=== PATIENT | male | born 1970 | race Caucasian/White ===

== ENCOUNTER 2022-02-05 13:45 | Emergency (ER) | payer OTHER ==
[~2022-02-05] VITALS: Ht 172.7 cm; Wt 100.0 kg
[2022-02-05 14:26] LABS: HEMATOCRIT 36.1 % (39.0-50.0); HEMOGLOBIN 11.5 g/dl (14.0-18.0); IMMATURE GRANULOCYTES 0.2 % (0.0-5.0); MEAN CELL VOLUME 88.5 fL CALC (80.0-100.0); MEAN CORPUSCULAR HGB 28.2 pG CALC (26.0-32.0); MEAN CORPUSCULAR HGB CONC 31.9 g/dL CAL (32.0-36.0); NEUT# 3.3 thou/uL (1.82-7.42); RED BLOOD COUNT 4.08 mill/uL (4.70-6.10)
[2022-02-05 14:36] LABS: ALBUMIN 4.5 g/dL (3.2-5.0); BILIRUBIN, TOTAL 0.8 mg/dL (0.0-1.4); CREATININE 1.6 mg/dL (0.7-1.3); TOTAL PROTEIN 7.9 g/dL (6.3-8.2)
[2022-02-05 16:37] LABS: URINE BILIRUBIN - DIPSTICK NEGATIVE (NEGATIVE); URINE BLOOD DIPSTICK SMALL (NEGATIVE); URINE COLOR YELLOW; URINE GLUCOSE - DIPSTICK NEGATIVE (NEGATIVE); URINE KETONE 15 mg/dL (NEGATIVE); URINE LEUK ESTERASE NEGATIVE (NEGATIVE); URINE PROTEIN - DIPSTICK NEGATIVE (NEG-TRACE); URINE SPECIFIC GRAVITY >=1.030; URINE UROBILINOGEN - DIPSTICK 0.2 E.U./dL (0.2)
[2022-02-05 16:38] LABS: URINE NITRITE - DIPSTICK NEGATIVE (Negative)
[2022-02-05 18:41] VITALS: BP 129/86
== END 2022-02-05 18:41 | disposition short-term general hospital (02) | DRG 392 ==
LOC: ED 13:45
PROVIDERS: Family Medicine
DX: R10.84 Generalized abdominal pain (principal); K50.90 Crohn's disease, unspecified, without complications; I10 Essential (primary) hypertension; E21.3 Hyperparathyroidism, unspecified; Z91.041 Radiographic dye allergy status
CPT/HCPCS: Q9967

== ENCOUNTER 2022-02-12 10:26 | Emergency (ER) | payer OTHER ==
[2022-02-12] VITALS (17 sets, daily range): BP systolic 107–164; BP diastolic 66–96
[~2022-02-12] VITALS: Ht 172.7 cm; Wt 91.0 kg
[2022-02-12 11:31] LABS: HEMATOCRIT 34.3 % (39.0-50.0); HEMOGLOBIN 11.2 g/dl (14.0-18.0); IMMATURE GRANULOCYTES 0.3 % (0.0-5.0); MEAN CELL VOLUME 87.9 fL CALC (80.0-100.0); MEAN CORPUSCULAR HGB 28.7 pG CALC (26.0-32.0); MEAN CORPUSCULAR HGB CONC 32.7 g/dL CAL (32.0-36.0); NEUT# 8.24 thou/uL (1.82-7.42); RED BLOOD COUNT 3.9 mill/uL (4.70-6.10); RED CELL DISTRI WIDTH 18.8 % (11.5-15.5)
[2022-02-12 11:43] LABS: ALBUMIN 4.1 g/dL (3.2-5.0); ALKALINE PHOSPHATASE 114 u/l (38-126); AMYLASE 171 u/l (30-110); ANION GAP 14 (6-22 (CALC)); BUN 12 mg/dL (9-20); BUN/CREATININE RATIO 15 (12-20 (CALC)); CARBON DIOXIDE 22 mmol/l (22-30); CHLORIDE 108 mmol/l (95-108); CREATININE 0.8 mg/dL (0.7-1.3); ETHYL ALCOHOL 0 mg/dl (0-30); GFR > 60 ML/MIN (>=60 (CALC)); GFR FOR AFR.AMER. > 60 ML/MIN (>=60 (CALC)); LIPASE 473 u/l (23-300); POTASSIUM 3.3 mmol/l (3.5-5.1); SGOT/AST 40 u/l (17-59); SODIUM 141 mmol/l (137-146); TOTAL PROTEIN 7.5 g/dL (6.3-8.2)
[2022-02-12 11:44] LABS: ACT PARTIAL THROMBO TIME 18.9 SECONDS (20.0-32.5); INTERNATIONAL NORMALIZED RATIO 0.9 RATIO (0.7-1.3); PROTHROMBIN TIME 9.9 SECONDS (9.0-12.5)
[2022-02-12 11:55] LABS: BILIRUBIN, TOTAL 0.4 mg/dL (0.0-1.4)
[2022-02-12] MEDS ORDERED: PHENERGAN25 MG PO (14:02)
[2022-02-12] MEDS ORDERED: PROTONIX40 M2 PO (14:03)
== END 2022-02-12 14:48 | disposition home or self-care (01) | DRG 392 ==
LOC: ED 10:26
DX: R11.2 Nausea with vomiting, unspecified (principal); R10.84 Generalized abdominal pain; D64.9 Anemia, unspecified; E87.6 Hypokalemia; R74.8 Abnormal levels of other serum enzymes

== ENCOUNTER 2022-04-08 13:27 | Emergency (ER) | payer OTHER ==
[~2022-04-08] VITALS: Ht 172.7 cm; Wt 91.0 kg
[~2022-04-08 13:27] MED LIST: PHENERGAN25 MG PO; PROTONIX40 M2 PO
[2022-04-08 14:23] LABS: HEMATOCRIT 32.7 % (39.0-50.0); IMMATURE GRANULOCYTES 0.2 % (0.0-5.0); MEAN CORPUSCULAR HGB 29.1 pG CALC (26.0-32.0); MEAN CORPUSCULAR HGB CONC 30.6 g/dL CAL (32.0-36.0); NEUT# 2.59 thou/uL (1.82-7.42); RED BLOOD COUNT 3.44 mill/uL (4.70-6.10); RED CELL DISTRI WIDTH 17.2 % (11.5-15.5)
[2022-04-08 14:24] LABS: MEAN CELL VOLUME 95.1 fL CALC (80.0-100.0)
[2022-04-08 14:36] LABS: ALBUMIN 3.6 g/dL (3.2-5.0); ALKALINE PHOSPHATASE 109 u/l (38-126); AMYLASE 111 u/l (30-110); ANION GAP 11 (6-22 (CALC)); BUN 12 mg/dL (9-20); BUN/CREATININE RATIO 14 (12-20 (CALC)); CARBON DIOXIDE 25 mmol/l (22-30); CHLORIDE 107 mmol/l (95-108); CREATININE 0.8 mg/dL (0.7-1.3); GFR FOR AFR.AMER. > 60 ML/MIN (>=60 (CALC)); GFR OTHER RACES > 60 ML/MIN (>=60 (CALC)); LIPASE 115 u/l (23-300); POTASSIUM 3.7 mmol/l (3.5-5.1); SGOT/AST 56 u/l (17-59); SODIUM 139 mmol/l (137-146); TOTAL PROTEIN 6.9 g/dL (6.3-8.2)
[2022-04-08 14:38] LABS: BILIRUBIN, TOTAL 0.7 mg/dL (0.0-1.4)
[2022-04-08 14:47] LABS: MYOGLOBIN 21 ng/mL (0 - 121)
[2022-04-08] MEDS ORDERED: ULTRAM50 M1 PO (15:20)
[2022-04-08] MEDS ORDERED: ONDANSETRON4 MG PO (15:21)
[2022-04-08 15:36] VITALS: BP 147/89
[2022-04-09] MEDS ORDERED: LOPRESSOR50 M1 PO (11:15)
[2022-04-09] MEDS ORDERED: MERCAPTOPUR50 MG PO (11:16)
[2022-04-09] MEDS ORDERED: OMEPRAZOLE20 MG PO (11:17)
[2022-04-09] MEDS ORDERED: DICYCLOMINE HCL20 MG PO (11:18)
[2022-04-09] MEDS ORDERED: NORVASC5 M1 (11:18)
[2022-04-09] MEDS ORDERED: ONDANSETRON HCL8 MG PO (11:19)
[2022-04-09] MEDS ORDERED: NORTRIPTYLIN25 MG PO (11:19)
[2022-04-09] MEDS ORDERED: HUMIRA PEN40 MG/0.8 SC (11:20)
[2022-04-09] MEDS ORDERED: CLONIDINE0.1 MG (11:21)
[2022-04-09] MEDS ORDERED: MAGNESIUM64 MG PO (11:22)
[2022-04-09] MEDS ORDERED: KLOR-CON M2020 MEQ (11:22)
[2022-04-09] MEDS ORDERED: VITAMIN B-12500 MCG (11:23)
[2022-04-09] MEDS ORDERED: APRISO0.375 GM PO (11:24)
[2022-04-09] MEDS ORDERED: FERROUS GLUC324 MG PO (11:25)
[2022-04-09] MEDS ORDERED: CALCIUM CARBO1250 MG PO (11:26)
[2022-04-09] MEDS ORDERED: COLESTID1 GM PO (11:27)
[2022-04-09] MEDS ORDERED: PREDNISONE20 MG (11:27)
[2022-04-09] MEDS ORDERED: VENTOLIN HFA (11:28)
== END 2022-04-08 15:50 | disposition home or self-care (01) | DRG 392 ==
LOC: ED 13:27
PROVIDERS: Emergency Medicine
DX: R10.33 Periumbilical pain (principal); K50.90 Crohn's disease, unspecified, without complications; R11.2 Nausea with vomiting, unspecified; I10 Essential (primary) hypertension; Z90.49 Acquired absence of other specified parts of digestive tract; Z20.822 Contact with and (suspected) exposure to COVID-19

== ENCOUNTER 2022-04-08 18:10 | Observation (INO) | payer OTHER ==
[~2022-04-08] VITALS: Ht 172.7 cm; Wt 127.0 kg
[~2022-04-08 18:10] MED LIST changes: +ONDANSETRON4 MG PO; +ULTRAM50 M1 PO
--- NOTE | 2022-04-08 18:12 | NUR ---
PT TO ROOM VIA W/C; DIAPHORETIC AND VOMITTING LOUDLY
--- NOTE | 2022-04-08 18:15 | NUR ---
NO BIOPATCH AVAILABLE, DR DENG. EMERGENT ACCESS DUE TO PATIENT CONDITION. DIAPHORETIC AND DRYHEAVING/VOMITING
[2022-04-08 19:11] LABS: HEMATOCRIT 35.3 % (39.0-50.0); HEMOGLOBIN 10.8 g/dl (14.0-18.0); IMMATURE GRANULOCYTES 0.2 % (0.0-5.0); MEAN CELL VOLUME 93.6 fL CALC (80.0-100.0); MEAN CORPUSCULAR HGB 28.6 pG CALC (26.0-32.0); MEAN CORPUSCULAR HGB CONC 30.6 g/dL CAL (32.0-36.0); NEUT# 2.89 thou/uL (1.82-7.42); RED BLOOD COUNT 3.77 mill/uL (4.70-6.10); RED CELL DISTRI WIDTH 17.2 % (11.5-15.5)
[2022-04-08 19:32] LABS: ALBUMIN 4.3 g/dL (3.2-5.0); ALKALINE PHOSPHATASE 138 u/l (38-126); AMYLASE 125 u/l (30-110); ANION GAP 18 (6-22 (CALC)); BILIRUBIN, TOTAL 0.7 mg/dL (0.0-1.4); BUN 11 mg/dL (9-20); BUN/CREATININE RATIO 11 (12-20 (CALC)); CARBON DIOXIDE 21 mmol/l (22-30); CHLORIDE 109 mmol/l (95-108); GFR FOR AFR.AMER. > 60 ML/MIN (>=60 (CALC)); GFR OTHER RACES > 60 ML/MIN (>=60 (CALC)); LIPASE 279 u/l (23-300); POTASSIUM 3.9 mmol/l (3.5-5.1); SGOT/AST 58 u/l (17-59); SODIUM 143 mmol/l (137-146); TOTAL PROTEIN 7.6 g/dL (6.3-8.2)
[2022-04-08 19:44] LABS: MYOGLOBIN 26 ng/mL (0 - 121)
--- NOTE | 2022-04-08 21:00 | NUR ---
[facility] ARRIVE TO UNIT VIA WHEELCHAIR ACCOMPANIED BY ER STAFF. PATIENT ORIENTED TO ROOM AND CALL LIGHT SYSTEM. ADMISSION ASSESMENT COMPLETED. PATIENT RACHEL A PORT TO RIGHT SIDE OF THE CHEST 20G NS AT 125ML/HR. PATIENT REPORTS PAIN TO ABDOMEN AND MEDICATED. CALL LIGHT IN REACH BED IN LOWEST POSITION. CONTINUE TO MONITOR.
[2022-04-08 21:03] VITALS: BP 163/94
--- NOTE | 2022-04-08 21:10 | NUR ---
PT XFER TO RM [id number]. BEDSIDE REPORT GIVEN TO RN. PT STABLE IN NO ACUTE DISTRESS.
--- NOTE | 2022-04-09 00:50 | NUR ---
PATIENT IN ROOM PACING. NOTED ANXIUOS. ANDRIA STATES IT HURT TO LAID DOWN. PATIENT MEDICATED PER MAR, CALL LIGHT IN REACH. CONTINUE TO MONITOR.
[2022-04-09 02:19] LABS: URINE BILIRUBIN - DIPSTICK NEGATIVE (NEGATIVE); URINE BLOOD DIPSTICK TRACE-INTACT (NEGATIVE); URINE CLARITY CLEAR; URINE COLOR YELLOW; URINE GLUCOSE - DIPSTICK NEGATIVE (NEGATIVE); URINE KETONE TRACE mg/dL (NEGATIVE); URINE LEUK ESTERASE NEGATIVE (Negative); URINE NITRITE - DIPSTICK NEGATIVE (Negative); URINE PH 5.5 (4.5-8.0); URINE PROTEIN - DIPSTICK NEGATIVE (NEG-TRACE); URINE SPECIFIC GRAVITY >=1.030; URINE UROBILINOGEN - DIPSTICK 0.2 E.U./dL (0.2)
[2022-04-09 03:50] VITALS: BP 148/86
[2022-04-09 04:00] VITALS: BP 148/86
--- NOTE | 2022-04-09 04:00 | NUR ---
PATIENT CONITINUES PACE IN ROOM AND HALLWAY PATIENT REPORT PAIN 9/10. HAND AND FEET NOTED SWOLLEN. PATEIENT REPORTS A LITTLE OF NAUSEA. PATIENT MEDICATED PER MAR. PATIENT SITING IN BED. CALL LING IN REACH AND BED IN LOWEST POSITION.
[2022-04-09 05:11] LABS: HEMATOCRIT 29.7 % (39.0-50.0); HEMOGLOBIN 9.3 g/dl (14.0-18.0); IMMATURE GRANULOCYTES 0.4 % (0.0-5.0); MEAN CELL VOLUME 93.7 fL CALC (80.0-100.0); MEAN CORPUSCULAR HGB 29.3 pG CALC (26.0-32.0); MEAN CORPUSCULAR HGB CONC 31.3 g/dL CAL (32.0-36.0); NEUT# 2.87 thou/uL (1.82-7.42); RED BLOOD COUNT 3.17 mill/uL (4.70-6.10); RED CELL DISTRI WIDTH 17.3 % (11.5-15.5)
[2022-04-09 05:37] LABS: ALBUMIN 3.7 g/dL (3.2-5.0); ALKALINE PHOSPHATASE 105 u/l (38-126); ANION GAP 10 (6-22 (CALC)); BUN 9 mg/dL (9-20); BUN/CREATININE RATIO 12 (12-20 (CALC)); C-REACTIVE PROTEIN < 0.5 mg/dL (0-0.9); CARBON DIOXIDE 25 mmol/l (22-30); CHLORIDE 108 mmol/l (95-108); CREATININE 0.8 mg/dL (0.7-1.3); GFR FOR AFR.AMER. > 60 ML/MIN (>=60 (CALC)); GFR OTHER RACES > 60 ML/MIN (>=60 (CALC)); POTASSIUM 3.5 mmol/l (3.5-5.1); SGOT/AST 48 u/l (17-59); SODIUM 139 mmol/l (137-146); TOTAL PROTEIN 6.6 g/dL (6.3-8.2)
--- NOTE | 2022-04-09 06:00 | NUR ---
PATIENT IN BED HOLDING HIS ABDOMEN AND TURN TO SIDE TO SIDE STATING THAT IT HURT SO BAD. DR NEWSOME NOTIFIED AND ORDER MORPHINE 2MG IV XI FOR PAIN.
[2022-04-09 06:25] VITALS: BP 143/92
--- NOTE | 2022-04-09 07:00 | NUR ---
SHIFT CHANGE REPORT, PT AWAKE AND ALERT THRASHING AND GROANING IN BED C/O ABD PAIN, NIGHT RN ADDRESSED ISSUE, IVF INFUSING, CALL WEINER IN REACH AND BED LOCKED IN LOWEST POSITION.
--- NOTE | 2022-04-09 08:32 | NUR ---
PT DISCOVERED WITH $160.00 IN COOK, REQUESTED TO SEND TO [facility], COUNTED AND VERIFIED WITH COURTNEY (WAITSTAFF CAPTAIN) AND PLACED IN SECURITY BAG TO BE SENT TO [facility]. PT NOW C/O NAUSEA AND DRY HEAVING, ITCHING TO LEFT UPPER TRUNK AND LEFT FOOT AND SCRATCHING AREAS, SWEATING AT THIS TIME AND PREPARED FOR SHOWER REQUESTED, WILL CONTINUE TO MONITOR AND ADDRESS NEEDS.
[2022-04-09] MEDS ORDERED: LOPRESSOR50 M1 PO (11:15)
[2022-04-09] MEDS ORDERED: MERCAPTOPUR50 MG PO (11:16)
[2022-04-09] MEDS ORDERED: OMEPRAZOLE20 MG PO (11:17)
[2022-04-09] MEDS ORDERED: DICYCLOMINE HCL20 MG PO (11:18)
[2022-04-09] MEDS ORDERED: NORVASC5 M1 (11:18)
[2022-04-09] MEDS ORDERED: NORTRIPTYLIN25 MG PO (11:19)
[2022-04-09] MEDS ORDERED: ONDANSETRON HCL8 MG PO (11:19)
[2022-04-09] MEDS ORDERED: HUMIRA PEN40 MG/0.8 SC (11:20)
[2022-04-09] MEDS ORDERED: CLONIDINE0.1 MG (11:21)
[2022-04-09] MEDS ORDERED: KLOR-CON M2020 MEQ (11:22)
[2022-04-09] MEDS ORDERED: MAGNESIUM64 MG PO (11:22)
[2022-04-09] MEDS ORDERED: VITAMIN B-12500 MCG (11:23)
[2022-04-09] MEDS ORDERED: APRISO0.375 GM PO (11:24)
[2022-04-09] MEDS ORDERED: FERROUS GLUC324 MG PO (11:25)
[2022-04-09] MEDS ORDERED: CALCIUM CARBO1250 MG PO (11:26)
[2022-04-09] MEDS ORDERED: COLESTID1 GM PO (11:27)
[2022-04-09] MEDS ORDERED: PREDNISONE20 MG (11:27)
[2022-04-09] MEDS ORDERED: VENTOLIN HFA (11:28)
--- NOTE | 2022-04-09 13:00 | NUR ---
PT REQUESTED SHOWER, AFTER APPROXIMATELY 30 MINS PT SITTING ON FLOOR IN SHOWER STATING HE FEELS COOL AND COMFORTABLE THERE WITH H2O RUNNING, ENCOURAGED TO GET UP AND GET BACK IN BED WHICH HE DID. HE HAS COMPLAINED OF FREQUENT PERIODIC DRY HEAVING/VOMITTING AND IS EXTREMELY LOUD DURING THESE EPISODES TO THE EFFECT OTHER PATIENTS ARE DISTURBED BY HIS LOUD NOISE. 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 THIS CONDITION HAS PERSISTED THROUGHOUT THE DAY EVEN AFTER MD HAS CHANGED HIS MEDICATIONS. WILL CONTINUE TO MONITOR.
--- NOTE | 2022-04-09 13:28 | NUR ---
DRY-HEAVING LOUDLY AT THIS TIME, REPORTS HE IS HOT AND WANTS TO GO IN THE SHOWER, IV LINE DISCONNECTED AND PT ALLOWED TO HAVE IF THAT MAKES HIM FEEL BETTER, WILL CONTINUE TO MONITOR.
[2022-04-09 14:30] VITALS: BP 154/97
--- NOTE | 2022-04-09 18:23 | NUR ---
C/O BEING HOT AND SWEATY, COOL WASHCLOTHS GIVEN AND FAN PLACED IN ROOM.
[2022-04-09 18:47] VITALS: BP 160/93
--- NOTE | 2022-04-09 19:15 | NUR ---
REPORT RECEIED FROM Emily OWEN RN
--- NOTE | 2022-04-09 20:00 | NUR ---
PATIENT OBSERVED WALKING OUT IN THE HALLWAYS, PROVIDED PATIENT WITH FACE MASK, PANFILO SADLER AT SIDE.
--- NOTE | 2022-04-09 22:13 | NUR ---
PATIENT IN THE SHOWER AT [facility] TIME
--- NOTE | 2022-04-09 22:25 | NUR ---
ORDER FOR ANGA REIVED FROM .
--- NOTE | 2022-04-10 03:30 | NUR ---
ORDER FOR 10MG IM XYPREXA RECEIVED FROM [facility]
[2022-04-10 04:04] VITALS: BP 162/79
--- NOTE | 2022-04-10 07:00 | NUR ---
SHIFT CHANGE REPORT, PT AMBULATING IN HALLWAYS AND C/O NAUSEA, REDIRECTED TO ROOM AFTER BEING ALLOWED TO AMBULATE FOR SOME MINUTES. STARTS DRY HEAVING LOUDLY, RESTLESS, THRASHING AROUND IN BED AND C/O ABD PAIN,MEDICATED AND EVENTUALLY RELAXED, SLEEPING.
[2022-04-10 07:10] VITALS: BP 179/101
--- NOTE | 2022-04-10 08:54 | NUR ---
AWAKE AND DISORIENTED AT THIS TIME, REMOVED CLOTHING AND AMBULATING ACCROSS HALLWAYS TO ANOTHER ROOM NAKED, MAKING MOANING/GROANING SOUNDS, ASSISTED BACK TO ROOM THEN TO BR HE STATED HE WANTS TO USE BR. SET UP FOR SHOWER HE REQUEST AT THIS TIME, FOLLOWS COMMANDS APPROPRIATELY BUT VERY IMPULSIVE AND MOVES RAPIDLY, AGRICULTURE MECHANIC INFORMED SITTER IN NEEDED FOR THIS PT NOW AND GAVE ORDER FOR FLOOR ITEM REPAIR MANAGER TO SIT UNTIL SUPSTITUTE COMES IN, WILL CONTINUE TO MONITOR.
--- NOTE | 2022-04-10 08:59 | NUR ---
PT IS ACTING AND APPEARS VERY UNSTABLE MENTALLY, MD WILL BE NOTIFIED OF CONDITION.
[2022-04-10 09:29] LABS: HEMOGLOBIN 10.1 g/dl (14.0-18.0); MEAN CELL VOLUME 92.2 fL CALC (80.0-100.0); MEAN CORPUSCULAR HGB 29.1 pG CALC (26.0-32.0); MEAN CORPUSCULAR HGB CONC 31.6 g/dL CAL (32.0-36.0); RED BLOOD COUNT 3.47 mill/uL (4.70-6.10); RED CELL DISTRI WIDTH 17.6 % (11.5-15.5)
[2022-04-10 10:14] LABS: ANION GAP 17 (6-22 (CALC)); BUN 10 mg/dL (9-20); BUN/CREATININE RATIO 13 (12-20 (CALC)); CARBON DIOXIDE 23 mmol/l (22-30); CHLORIDE 108 mmol/l (95-108); CREATININE 0.8 mg/dL (0.7-1.3); GFR FOR AFR.AMER. > 60 ML/MIN (>=60 (CALC)); GFR OTHER RACES > 60 ML/MIN (>=60 (CALC)); MAGNESIUM 1.5 mg/dL (1.6-2.3); POTASSIUM 3.9 mmol/l (3.5-5.1); SODIUM 144 mmol/l (137-146)
--- NOTE | 2022-04-10 12:00 | NUR ---
SITTER AT BEDSIDE, PT RESTING/SLEEPING IN BED. CONDITION IMPROVING AFTER ORDERED MEDS GIVEN.
[2022-04-10 14:48] VITALS: BP 151/87
[2022-04-10] MEDS ORDERED: PREDNISONE5 MG PO (15:41)
--- NOTE | 2022-04-10 16:00 | NUR ---
RESTLESNESS BEGINS AGAIN WITH LOUD DRY-HEAVINGS, MOANINGS AND ATTEMPTING TO GET OOB, REORIENTED AND REDIRECTED, THEN CALMED DOWN.
--- NOTE | 2022-04-10 18:55 | NUR ---
WALKING ROUNDS REPORT RECEIVED BY OUT-GOING SHIFT. PATIENT RESTING QUIETLY IN BED WITH EYES CLOSED RELAXED POSTURE. RESPIRATONS EVEN AND UNLABORED. EASILY AROUSABLE FOR ASSESSMENT. PLEASANT AND COOPERATIVE. PO FLUIDS TOLERATED WELL.
--- NOTE | 2022-04-11 00:02 | NUR ---
COMPLAIN OF ABDOMINAL PAIN AT LLQ RADIANT TRANSVERSE TO RLQ TO RUQ. MEDICATED FOR RELIEF OF PAIN AND DISCOMFORT.
--- NOTE | 2022-04-11 04:00 | NUR ---
RESTING QUIETLY IN BED WITH EYES CLOSED. RESPIRATIONS EVEN AND UNLABORED NO ACUTE DISTRESS NOTED.
[2022-04-11 05:00] VITALS: BP 155/79
[2022-04-11 05:00] LABS: HEMATOCRIT 28.4 % (39.0-50.0); HEMOGLOBIN 8.9 g/dl (14.0-18.0); IMMATURE GRANULOCYTES 0.2 % (0.0-5.0); MEAN CELL VOLUME 93.4 fL CALC (80.0-100.0); MEAN CORPUSCULAR HGB 29.3 pG CALC (26.0-32.0); MEAN CORPUSCULAR HGB CONC 31.3 g/dL CAL (32.0-36.0); NEUT# 4.11 thou/uL (1.82-7.42); RED BLOOD COUNT 3.04 mill/uL (4.70-6.10); RED CELL DISTRI WIDTH 17.9 % (11.5-15.5)
[2022-04-11 05:21] LABS: ALBUMIN 3.2 g/dL (3.2-5.0); ALKALINE PHOSPHATASE 55 u/l (38-126); BUN 11 mg/dL (9-20); BUN/CREATININE RATIO 13 (12-20 (CALC)); CHLORIDE 105 mmol/l (95-108); CREATININE 0.8 mg/dL (0.7-1.3); GFR FOR AFR.AMER. > 60 ML/MIN (>=60 (CALC)); GFR OTHER RACES > 60 ML/MIN (>=60 (CALC)); SGOT/AST 51 u/l (17-59); SODIUM 138 mmol/l (137-146); TOTAL PROTEIN 5.9 g/dL (6.3-8.2)
[2022-04-11 05:23] LABS: POTASSIUM 3.8 mmol/l (3.5-5.1)
[2022-04-11 05:34] LABS: ANION GAP 9 (6-22 (CALC)); BILIRUBIN, TOTAL 1.6 mg/dL (0.0-1.4); CARBON DIOXIDE 28 mmol/l (22-30); MAGNESIUM 1.9 mg/dL (1.6-2.3)
--- NOTE | 2022-04-11 06:57 | NUR ---
PT REPORT RECIEVED FROM FIGURE CLERK
[2022-04-11 07:14] VITALS: BP 155/98
[2022-04-11 08:00] VITALS: BP 177/95
--- NOTE | 2022-04-11 08:00 | NUR ---
PT RESTING IN FOWLERS POSITION. ASSESSMENT AND VS COMPLETED. PT SCREAMING IN PAIN . PT HAS NOT VOMITED. PT STATES TO BE NAUSEATED. PT MEDICATED. PT REMAINS CALM IN COLD SHOWER . PT STATES NO PAIN IN SHOWER. PT STATES PAIN ONCE LAYING IN BED. PT HEART RHYHTM NORMAL . RESPIRATIONS EVEN LABORED DUE TO PAIN. PT AGITATED. MEDICATED PER EMAR. BED ALARM ON . PORT NOTED TO RIGHT SUBCLAVIAN. ALL SAFTEY PRECAUTIONS IN PLACE.
--- NOTE | 2022-04-11 12:41 | NUR ---
PT REMAINS AGITATED. SCREAMING IN PAIN. NURSE TECH ADVISED IF PT DECIDES TO TAKE COLD SHOWER HE MAY TO FEEL BETTER. PT SAFETY PRECAUTIONS IN PLACE.
--- NOTE | 2022-04-11 15:51 | NUR ---
PT RESTING NO DISTRESS NOTED. ALL SAFETY PRECAUTIONS IN PLACE.
[2022-04-11 16:07] VITALS: BP 177/95
[2022-04-11 16:09] VITALS: BP 136/85
--- NOTE | 2022-04-11 16:41 | NUR ---
PT SCREAMING IN PAIN. CAP MAKER INFORMED. CAP MAKER ORDERED MEDICATION AND TELE FOR PT.
--- NOTE | 2022-04-11 18:50 | NUR ---
PATIENT AWAKE ALERT SITTING AT BEDSIDE MOANING LOUDLY, AUDIBLE DRY-HEAVING HEARD WITHOUT EMESIS. PAIN-CONTROLMETHODS OF REASSURANCE NOT AFFECTIVE AT THIS TIME. SKIN WARM AND MOIST. MED-PORT CENTRAL LINE DRSG CARE PROVIDED USING CVP DRSG CARE KIT. ZOFAN 4 MG GIVEN SLOW IV PUSH TO RELEIVE NAUSEA AND LORTAB GIVEN PO FOR PAIN RELIEF
--- NOTE | 2022-04-11 19:51 | NUR ---
DR NEWSOME UPDATED ON PATIENT CONDITION AND POOR PAIN MANAGEMENT AND BEHAVIORAL LOUD OUTBURTS NEW ORDER RECEIVED.
--- NOTE | 2022-04-11 20:47 | NUR ---
PATIENT RESTINGT QUIETLY IN BED WITH EYES CLOSED RESPIRATONS EVEN AND UNLABORED POSTURE RELAXED WILL CONTINUE TO MONITOR.
--- NOTE | 2022-04-11 21:58 | NUR ---
PATIENT RESTLESS MOVING IN BED MOANINING LOUDLY STATING HE'S IN BED RESPONDS TO GENTLE MESSAGE AND REASSURANCE WILL CONTINUE TO MONITOR.
--- NOTE | 2022-04-11 23:01 | NUR ---
RESTING QUIETLY IN BED WITH EYES CLOSED SUPINE RELAXED POSTURE RESPIRATIONS EVEN AND UNLABORED. QUIET ROOM EVIRONMENT MAINTAINED FOR REST.
[2022-04-12] VITALS (10 sets, daily range): BP systolic 112–185; BP diastolic 66–109
--- NOTE | 2022-04-12 01:28 | NUR ---
PATIENT MOANING LOUDLY C/O ABD PAIN AND CHEST PRESSURE EKG ORDERED WILL MONITOR CLOSELY
--- NOTE | 2022-04-12 01:32 | NUR ---
12 LEAD EKG WAS COMPLETED ON PT, SHOWS NORMAL SINUS RHYTHYM, NO CHANGES FROM PREVIOUS EKG. PT VERBALIZES CHEST PAIN GONE AFTER EKG COMPLETED
--- NOTE | 2022-04-12 02:40 | NUR ---
patient ambulating in hallway alert and oriented stated he was restless and needed to walk around. no sob noted uses iv pole for support assisted back to bed monitored for safety.
[2022-04-12 04:32] LABS: HEMOGLOBIN 10.2 g/dl (14.0-18.0); IMMATURE GRANULOCYTES 0.3 % (0.0-5.0); MEAN CELL VOLUME 91.4 fL CALC (80.0-100.0); MEAN CORPUSCULAR HGB 29.1 pG CALC (26.0-32.0); MEAN CORPUSCULAR HGB CONC 31.9 g/dL CAL (32.0-36.0); NEUT# 4.24 thou/uL (1.82-7.42); RED BLOOD COUNT 3.5 mill/uL (4.70-6.10); RED CELL DISTRI WIDTH 17.5 % (11.5-15.5)
[2022-04-12 04:45] LABS: ANION GAP 13 (6-22 (CALC)); BUN 7 mg/dL (9-20); BUN/CREATININE RATIO 11 (12-20 (CALC)); CARBON DIOXIDE 25 mmol/l (22-30); CHLORIDE 103 mmol/l (95-108); CREATININE 0.7 mg/dL (0.7-1.3); GFR FOR AFR.AMER. > 60 ML/MIN (>=60 (CALC)); GFR OTHER RACES > 60 ML/MIN (>=60 (CALC)); MAGNESIUM 1.7 mg/dL (1.6-2.3); POTASSIUM 3.3 mmol/l (3.5-5.1); SODIUM 137 mmol/l (137-146)
--- NOTE | 2022-04-12 05:34 | NUR ---
RESTING QUIETLY IN BED WITH EYES CLOSED NO ACUTE DISTRESS NOTED.
--- NOTE | 2022-04-12 06:26 | NUR ---
assisted to bathroom to void hr in the 120 - 130's sinus tachycardia. no acut distress noted.
--- NOTE | 2022-04-12 08:20 | NUR ---
PATIENT C/O PAIN IN ABDOMEN, MEDICATED, RECEIVED ORAL LOPRESSOR FOR BP 164/90, UP IN SHOWER CURRENTLY, SITTER IN ROOM.
--- NOTE | 2022-04-12 10:12 | NUR ---
PATIENT GAGGING AND RETCHING VERY LOUDLY, C/O 8/10 PAIN IN ABDOMEN, HUNCHED OVER WHEN WALKING, LAYING IN BED MOANING LOUDLY. MEDICATED FOR NAUSEA AND PAIN.
--- NOTE | 2022-04-12 12:36 | NUR ---
RESTING IN ROOM, CONTINUES WITH INTERMITTENT RETCHING ND MOANING, REFUSED TO EVEN TRY EATING HIS LUNCH, STATES HE TRIED THIS MORNING AND THREW IT UP. THIS WAS NOT WITNESSED BY ANY STAFF. CURRENTLY ASKING TO SHOWER AGAIN.
--- NOTE | 2022-04-12 16:26 | NUR ---
MEDICATED FOR PAIN AND NAUSEA, PATIENT CONTINUES TO RETCH LOUDLY AND MOAN.
--- NOTE | 2022-04-12 16:56 | NUR ---
PATIENT BP 187/100, GAVE 10 MG PRN LABETALOL
--- NOTE | 2022-04-12 19:30 | NUR ---
PATIENT WAS UP AND AMBULATING IN THE HALLS EARLIER BUT IS NOW SITTING UP ON THE SIDE OF THE BED. PATIENT C/O SEVERE PAIN, HIGH ANXIETY. BP IS ELEVATED-MEDICATED WITH LOPRESSOR 150MG PO ORDERED FOR HS. ALREADY MEDICATED WITH PAIN AND ANXIETY MEDS EARLIER. TELE MONITOR IN PLACE WITH LAST READING SR-70'S. IVF NS PATENT AND INFUSING VIA RIGHT PORT AT 80CC/HR. SITE IS HEALTHY AT THIS TIME. ABD IS SOFT WITH ACTIVE BS. STATES THAT HE HAD DIARRHEA STOOL THIS MORNING. INSTRUCTED TO LET STAFF KNOW IF HE HAS ANY FURTHER BM'S SO THAT WEE CAN ASSESS THEM. VERBALIZES UNDERSTANDING. LUNGS ARE CLEAR. DENIES ANY DIFFICULTY WITH URINATION. NO PERIPHERAL EDEMA NOTED. SAFETY PRECAUTIONS REINFORCED. CALL LIGHT IN REACH. WILL CONT TO MONITOR.
--- NOTE | 2022-04-12 20:42 | NUR ---
PATIENT RESTING IN BED WITH EYES CLOSED. BP RECHECK WAS 112/66. RESPS ARE EVEN AND UNLABORED. TELE MONITOR IN PLACE-HR-60'S AT THIS TIME. IVF PATENT AND INFUSING AT 80CC/HR VIA RIGHT PORT. CALL LIGHT IN REACH. WILL CONT TO MONITOR.
--- NOTE | 2022-04-12 21:27 | NUR ---
PATIENT C/O SEVERE STABBING ABD PAIN-8/10 ON PAIN SCALE. MEDICATED WITH LORTAB 10/325MG PO. RESTING IN BED-WILL CONT TO MONITOR.
--- NOTE | 2022-04-12 22:30 | NUR ---
PATIENT C/O NAUSEA AND STATES NO RELIEF FROM PAIN MED GIVEN. MEDICATED WITH TORADOL ORDERED FOR PAIN AND WITH PHENERGAN 12.5MG IVP FOR NAUSEA. PATIENT MOANING OUT LOUD AT TIMES. NO VOMITTING NOTED. IVF PATENT AND INFUSING ORDERED VIA RIGHT PORT. SAFETY PRECAUTIONS RFEINFORCED. CALL LIGHT IN REACH. WILL CONT TO MONITOR.
--- NOTE | 2022-04-12 23:34 | NUR ---
PATIENT C/O CHEST PAIN, DIZZINESS. WANTS TO GET UP AND AMBULATE-INSTRUCTED PATIENT TO STAY IN BED IF HAVING DIZZINESS AND EKG ORDERED. WILL CONT TO MONITOR.
--- NOTE | 2022-04-12 23:51 | NUR ---
EKG DONE AND WAS NSR WITH SA-75. MEDICATED FOR NAUSEA WITH ZOFRAN 4MG IVP. MEDICATED FOR PAIN WITH TYLENOL 650MG PO. PATIENT STATES THAT HE CONT TO HAVE PAIN BUT IS LAUGHING AT THE TV SHOW THAT IS ON. TELE MONITOR REMAINS IN PLACE. IVF PATIENT AND INFUSING ORDERED. ZOSYN HUNG ORDERED. VOIDING QS YELLOW URINE IN URINAL. CALL LIGHT IN REACH. WILL CONT TO MONITOR.
[2022-04-13] VITALS (7 sets, daily range): BP systolic 134–180; BP diastolic 64–100
--- NOTE | 2022-04-13 00:30 | NUR ---
PATIENT RESTING IN BED WITH EYES CLOSED. RESPS ARE EVEN AND UNLABORED. TELE MONITOR IN PLACE-LAST READING SR-83. IVF PATIENT AND INFUSING AT 80CC/HR. CALL LIGHT IN REACH. WILL CONT TO MONITOR.
--- NOTE | 2022-04-13 02:05 | NUR ---
PATIENT UP AMB IN THE HALLS-DENIES ANY CHEST PAIN OR DIZZINESS AT THIS TIME AND THEN RETURNED TO ROOM. CALLED ASKING FOR HIS MEDICATION AGAIN. PATIENT AGAIN STARTS WITH HIS MOANING AND GROANING OUT LOUD. WHEN PATIENT ASKED WHY HE WAS DOING THIS HE STATES THAT HE DOESN'T KNOW WHY. MEDICATED WITH ATIVAN 2MG IVP FOR HIGH ANXIETY AND AGITATION. IVF PATENT AND INFUSING VIA RIGHT CHEST PORT. TELE MONITOR REMAINS IN PLACE. CALL LIGHT IN REACH. WILL CONT TO MONITOR.
--- NOTE | 2022-04-13 04:10 | NUR ---
PATIENT RESTING IN BED POSITIONED ON HIS LEFT SIDE. EYES CLOSED AND RESPS EVEN AND UNLABORED. LAB WORK DRAWN FROM RIGHT UPPER CHEST PORT WITHOUT ANY DIFF AND WITH GOOD BLOOD RETURN. FLUSHED WITH SALINE AND IVF NS PATENT AND INFUSING AT 80CC/HR. TELE REMAINS IN PLACE AT THIS TIME. CVALL LIGHT IN REACH. WILL CONT TO MONITOR.
[2022-04-13 04:48] LABS: HEMATOCRIT 30.8 % (39.0-50.0); MEAN CELL VOLUME 90.3 fL CALC (80.0-100.0); MEAN CORPUSCULAR HGB 29.3 pG CALC (26.0-32.0); MEAN CORPUSCULAR HGB CONC 32.5 g/dL CAL (32.0-36.0); RED BLOOD COUNT 3.41 mill/uL (4.70-6.10); RED CELL DISTRI WIDTH 17.1 % (11.5-15.5)
[2022-04-13 05:12] LABS: ANION GAP 13 (6-22 (CALC)); BUN 9 mg/dL (9-20); BUN/CREATININE RATIO 12 (12-20 (CALC)); CARBON DIOXIDE 24 mmol/l (22-30); CHLORIDE 101 mmol/l (95-108); CREATININE 0.7 mg/dL (0.7-1.3); GFR FOR AFR.AMER. > 60 ML/MIN (>=60 (CALC)); GFR OTHER RACES > 60 ML/MIN (>=60 (CALC)); MAGNESIUM 1.7 mg/dL (1.6-2.3); SODIUM 135 mmol/l (137-146)
--- NOTE | 2022-04-13 07:20 | NUR ---
PATIENT WAS PUT BACK ON TELE AFTER SHOWER, THEN AMBULATED IN HALLWAY, HAD RYTHYM CHANGES ON MONITOR, STAT EKG ORDERED.
--- NOTE | 2022-04-13 07:37 | NUR ---
SPOKE WITH DR. CONNER REGARDING RYTHYM CHANGES ON TELE, ORDERS PLACED TO REPLACE POTASSIUM.
--- NOTE | 2022-04-13 10:34 | NUR ---
BP ELEVATED AT 180/100, PRN MEDICATION GIVEN
--- NOTE | 2022-04-13 10:45 | NUR ---
BP AFTER 15 MINUTES 175/94
--- NOTE | 2022-04-13 12:22 | NUR ---
RESTING IN BED, BP BETTER, DOES NOT APPEAR TO BE IN ANY CURRENT DISTRESS, DID ATTEMPT TO EAT SOME OF HIS LUNCH. NO VOMITING.
--- NOTE | 2022-04-13 15:15 | NUR ---
PATIENT TRANSFERED TO [facility] FOR HIGHER LEVEL OF CARE. PORT HEPRINIZED AND FLUSHED, REPORT CALLED TO RECEIVING NURSE, VITALS CURRENTLY STABLE.
== END 2022-04-13 15:21 | disposition short-term general hospital (02) | DRG 392 ==
LOC: ED 18:10 → ED-I 19:53 → ED 20:02 → MS2 20:03
PROVIDERS: Emergency Medicine; Nurse Practitioner; ADMIT Hospitalist; ATTEND Hospitalist
DX: R11.2 Nausea with vomiting, unspecified (principal); K50.90 Crohn's disease, unspecified, without complications; R10.13 Epigastric pain; F12.90 Cannabis use, unspecified, uncomplicated; I10 Essential (primary) hypertension; J45.909 Unspecified asthma, uncomplicated; R45.1 Restlessness and agitation; G47.30 Sleep apnea, unspecified; Z95.828 Presence of other vascular implants and grafts; Z79.899 Other long term (current) drug therapy; Z20.822 Contact with and (suspected) exposure to COVID-19
CPT/HCPCS: G0378; J1650; J2060; J3475; S0164; S0166

== ENCOUNTER 2023-01-02 17:47 | Emergency (ER) | payer OTHER ==
[~2023-01-02] VITALS: Ht 172.7 cm; Wt 86.2 kg
[2023-01-02] VITALS (23 sets, daily range): BP systolic 80–120; BP diastolic 53–97
[~2023-01-02 17:47] MED LIST changes: +APRISO0.375 GM PO; +CALCIUM CARBO1250 MG PO; +CLONIDINE0.1 MG; +COLESTID1 GM PO; +DICYCLOMINE HCL20 MG PO; +FERROUS GLUC324 MG PO; +HUMIRA PEN40 MG/0.8 SC; +KLOR-CON M2020 MEQ; +LOPRESSOR50 M1 PO; +MAGNESIUM64 MG PO; +MERCAPTOPUR50 MG PO; +NORTRIPTYLIN25 MG PO; +NORVASC5 M1; +OMEPRAZOLE20 MG PO; +ONDANSETRON HCL8 MG PO; +PREDNISONE20 MG; +PREDNISONE5 MG PO; +VENTOLIN HFA; +VITAMIN B-12500 MCG
[2023-01-02 19:01] LABS: BASO% 0.9 % (0-3); EOS% 5.8 % (0-8); HEMATOCRIT 32.9 % (39.0-50.0); HEMOGLOBIN 10.9 g/dl (14.0-18.0); IMMATURE GRANULOCYTES 0.3 % (0.0-5.0); LYMPH% 24.6 % (15-41); MEAN CELL VOLUME 102.5 fL CALC (80.0-100.0); MEAN CORPUSCULAR HGB CONC 33.1 g/dL CAL (32.0-36.0); MONO% 9.9 % (2-13); NEUT# 4.12 thou/uL (1.82-7.42); NEUT% 58.5 % (42-76); RED BLOOD COUNT 3.21 mill/uL (4.70-6.10); RED CELL DISTRI WIDTH 18.7 % (11.5-15.5)
[2023-01-02 19:51] LABS: ALBUMIN 3.5 g/dL (3.2-5.0); ALKALINE PHOSPHATASE 73 u/l (38-126); BUN 11 mg/dL (9-20); BUN/CREATININE RATIO 12 (12-20 (CALC)); CHLORIDE 111 mmol/l (95-108); GFR FOR AFR.AMER. > 60 ML/MIN (>=60 (CALC)); GFR OTHER RACES > 60 ML/MIN (>=60 (CALC)); POTASSIUM 3.5 mmol/l (3.5-5.1); SGOT/AST 45 u/l (17-59); TOTAL PROTEIN 6.7 g/dL (6.3-8.2)
[2023-01-02 19:52] LABS: ANION GAP 16 (6-22 (CALC)); BILIRUBIN, TOTAL 0.7 mg/dL (0.2-1.3); CARBON DIOXIDE 19 mmol/l (22-30); SODIUM 142 mmol/l (137-146)
== END 2023-01-02 23:20 | DRG 204 ==
LOC: ED 17:47
PROVIDERS: Family Medicine
DX: R06.02 Shortness of breath (principal); K51.90 Ulcerative colitis, unspecified, without complications; M06.9 Rheumatoid arthritis, unspecified; I10 Essential (primary) hypertension; Z20.822 Contact with and (suspected) exposure to COVID-19; Z85.9 Personal history of malignant neoplasm, unspecified
CPT/HCPCS: J1650; J2060

== ENCOUNTER 2023-06-15 19:40 | Emergency (ER) | payer OTHER ==
[~2023-06-15] VITALS: Ht 172.7 cm; Wt 200.0 kg
[2023-06-15] VITALS (9 sets, daily range): BP systolic 118–148; BP diastolic 78–121
[2023-06-15 20:24] LABS: BASO% 0.2 % (0-3); HEMATOCRIT 42.4 % (39.0-50.0); IMMATURE GRANULOCYTES 0.3 % (0.0-5.0); LYMPH% 10.6 % (15-41); MEAN CELL VOLUME 98.4 fL CALC (80.0-100.0); MEAN CORPUSCULAR HGB 35.5 pG CALC (26.0-32.0); MEAN CORPUSCULAR HGB CONC 36.1 g/dL CAL (32.0-36.0); MONO% 8.4 % (2-13); NEUT# 8.28 thou/uL (1.82-7.42); NEUT% 80.5 % (42-76); RED BLOOD COUNT 4.31 mill/uL (4.70-6.10); RED CELL DISTRI WIDTH 13.5 % (11.5-15.5)
[2023-06-15 20:30] LABS: HEMOGLOBIN 15.3 g/dl (14.0-18.0)
[2023-06-15 20:38] LABS: ALBUMIN 4.8 g/dL (3.2-5.0); ALKALINE PHOSPHATASE 85 u/l (38-126); AMYLASE 84 u/l (30-110); ANION GAP 20 (6-22 (CALC)); BILIRUBIN, TOTAL 2.2 mg/dL (0.2-1.3); BUN 8 mg/dL (9-20); BUN/CREATININE RATIO 7 (12-20 (CALC)); CARBON DIOXIDE 20 mmol/l (22-30); CHLORIDE 106 mmol/l (95-108); GFR FOR AFR.AMER. > 60 ML/MIN (>=60 (CALC)); GFR OTHER RACES > 60 ML/MIN (>=60 (CALC)); LIPASE 46 u/l (23-300); POTASSIUM 2.8 mmol/l (3.5-5.1); SGOT/AST 69 u/l (17-59); SODIUM 143 mmol/l (137-146); TOTAL PROTEIN 8.3 g/dL (6.3-8.2)
[2023-06-16] VITALS (17 sets, daily range): BP systolic 132–156; BP diastolic 81–139
[2023-06-16 05:15] LABS: URINE BILIRUBIN - DIPSTICK Negative (NEGATIVE); URINE BLOOD DIPSTICK Negative (NEGATIVE); URINE GLUCOSE - DIPSTICK Negative (NEGATIVE); URINE KETONE 40 mg/dL (NEGATIVE); URINE LEUK ESTERASE Negative (NEGATIVE); URINE NITRITE - DIPSTICK Negative (Negative); URINE PROTEIN - DIPSTICK 30 mg/dL (NEG-TRACE); URINE SPECIFIC GRAVITY 1.015
[2023-06-16 05:17] LABS: URINE COLOR Yellow
[2023-06-16 05:20] LABS: URINE BACTERIA FEW hpf; URINE EPITHELIAL CELLS FEW EPI/hpf (0-FEW); URINE RBC 0-2 RBC/hpf (0-5)
== END 2023-06-16 04:50 | DRG 387 ==
LOC: ED 19:40
PROVIDERS: Emergency Medicine
DX: K50.90 Crohn's disease, unspecified, without complications (principal); E87.6 Hypokalemia; F41.9 Anxiety disorder, unspecified; I10 Essential (primary) hypertension; J45.909 Unspecified asthma, uncomplicated; Z87.442 Personal history of urinary calculi; Z20.822 Contact with and (suspected) exposure to COVID-19
CPT/HCPCS: J2060; S0164

== ENCOUNTER 2023-10-07 07:47 | Emergency (ER) | payer OTHER ==
[~2023-10-07] VITALS: Ht 172.7 cm; Wt 85.0 kg
[2023-10-07 08:07] VITALS: BP 150/94
[2023-10-07 08:15] VITALS: BP 136/100
[2023-10-07 08:30] VITALS: BP 140/94
[2023-10-07 08:34] LABS: BASO% 0.4 % (0-3); EOS% 1.7 % (0-8); HEMATOCRIT 42.3 % (39.0-50.0); HEMOGLOBIN 14.7 g/dl (14.0-18.0); IMMATURE GRANULOCYTES 0.2 % (0.0-5.0); LYMPH% 20.6 % (15-41); MEAN CELL VOLUME 102.9 fL CALC (80.0-100.0); MEAN CORPUSCULAR HGB 35.8 pG CALC (26.0-32.0); MEAN CORPUSCULAR HGB CONC 34.8 g/dL CAL (32.0-36.0); MONO% 13.1 % (2-13); NEUT# 3.49 thou/uL (1.82-7.42); RED BLOOD COUNT 4.11 mill/uL (4.70-6.10); RED CELL DISTRI WIDTH 13.2 % (11.5-15.5)
[2023-10-07 08:52] LABS: ALBUMIN 4.2 g/dL (3.2-5.0); ALKALINE PHOSPHATASE 86 u/l (38-126); BUN 11 mg/dL (9-20); BUN/CREATININE RATIO 12 (12-20 (CALC)); CARBON DIOXIDE 22 mmol/l (22-30); CHLORIDE 110 mmol/l (95-108); CREATININE 0.9 mg/dL (0.7-1.3); GFR FOR AFR.AMER. > 60 ML/MIN (>=60 (CALC)); GFR OTHER RACES > 60 ML/MIN (>=60 (CALC)); LIPASE 88 u/l (23-300); SGOT/AST 59 u/l (17-59); SODIUM 143 mmol/l (137-146); TOTAL PROTEIN 7.2 g/dL (6.3-8.2)
[2023-10-07 08:53] LABS: ANION GAP 15 (6-22 (CALC)); BILIRUBIN, TOTAL 0.9 mg/dL (0.2-1.3); C-REACTIVE PROTEIN < 0.5 mg/dL (0-0.9); POTASSIUM 3.7 mmol/l (3.5-5.1)
[2023-10-07 09:01] VITALS: BP 128/86
[2023-10-07 10:01] VITALS: BP 160/98
[2023-10-07] MEDS ORDERED: HYDROCO/APAP1 TA9 PO (10:15)
[2023-10-07] MEDS ORDERED: ZOFRAN4 MG/TAB PO (10:16)
[2023-10-07] MEDS ORDERED: PREDNISONE50 MG PO (10:22)
[2023-10-07 10:32] VITALS: BP 160/98
== END 2023-10-07 10:33 | disposition left against medical advice (07) | DRG 392 ==
LOC: ED 07:47 → ED-I 09:59 → ED 10:33
PROVIDERS: Family Medicine
DX: R10.9 Unspecified abdominal pain (principal); R11.2 Nausea with vomiting, unspecified; K50.90 Crohn's disease, unspecified, without complications; I10 Essential (primary) hypertension; Z53.29 Procedure and treatment not carried out because of patient's decision for other reasons

== ENCOUNTER 2023-10-07 12:34 | Emergency (ER) | payer OTHER ==
[~2023-10-07] VITALS: Ht 172.7 cm; Wt 85.0 kg
[~2023-10-07 12:34] MED LIST changes: +HYDROCO/APAP1 TA9 PO; +PREDNISONE50 MG PO; +ZOFRAN4 MG/TAB PO
[2023-10-07 12:46] VITALS: BP 176/125
[2023-10-07 12:55] VITALS: BP 168/112
[2023-10-07 13:01] VITALS: BP 140/72
[2023-10-07 13:26] LABS: BASO% 0.2 % (0-3); HEMATOCRIT 42.8 % (39.0-50.0); HEMOGLOBIN 14.7 g/dl (14.0-18.0); IMMATURE GRANULOCYTES 0.3 % (0.0-5.0); LYMPH% 5.3 % (15-41); MEAN CELL VOLUME 104.4 fL CALC (80.0-100.0); MEAN CORPUSCULAR HGB 35.9 pG CALC (26.0-32.0); MEAN CORPUSCULAR HGB CONC 34.3 g/dL CAL (32.0-36.0); MONO% 1.6 % (2-13); NEUT# 8.27 thou/uL (1.82-7.42); NEUT% 92.6 % (42-76); RED BLOOD COUNT 4.1 mill/uL (4.70-6.10)
[2023-10-07 13:30] VITALS: BP 142/86
[2023-10-07 13:31] LABS: ALBUMIN 4.7 g/dL (3.2-5.0); ALKALINE PHOSPHATASE 87 u/l (38-126); BUN 10 mg/dL (9-20); BUN/CREATININE RATIO 12 (12-20 (CALC)); CHLORIDE 113 mmol/l (95-108); CREATININE 0.8 mg/dL (0.7-1.3); GFR FOR AFR.AMER. > 60 ML/MIN (>=60 (CALC)); GFR OTHER RACES > 60 ML/MIN (>=60 (CALC)); POTASSIUM 3.7 mmol/l (3.5-5.1); SGOT/AST 75 u/l (17-59); SODIUM 146 mmol/l (137-146); TOTAL PROTEIN 7.8 g/dL (6.3-8.2)
[2023-10-07 13:38] LABS: ANION GAP 24 (6-22 (CALC)); BILIRUBIN, TOTAL 1.3 mg/dL (0.2-1.3); CARBON DIOXIDE 13 mmol/l (22-30)
[2023-10-07 14:36] VITALS: BP 142/86
== END 2023-10-07 14:37 | disposition short-term general hospital (02) | DRG 387 ==
LOC: ED 12:34
PROVIDERS: Family Medicine
DX: K50.90 Crohn's disease, unspecified, without complications (principal); I10 Essential (primary) hypertension; Z72.0 Tobacco use

== ENCOUNTER 2023-10-30 20:44 | Emergency (ER) | payer OTHER ==
[~2023-10-30] VITALS: Ht 172.7 cm; Wt 81.6 kg
[2023-10-30] VITALS (9 sets, daily range): BP systolic 104–129; BP diastolic 66–84
[2023-10-30] MEDS ORDERED: HUMIRA10 MG/0.1 (21:26)
[2023-10-30 22:23] LABS: BASO% 0.5 % (0-3); EOS% 0.6 % (0-8); HEMATOCRIT 37.9 % (39.0-50.0); HEMOGLOBIN 12.8 g/dl (14.0-18.0); IMMATURE GRANULOCYTES 0.2 % (0.0-5.0); LYMPH% 18.7 % (15-41); MEAN CELL VOLUME 106.2 fL CALC (80.0-100.0); MEAN CORPUSCULAR HGB 35.9 pG CALC (26.0-32.0); MEAN CORPUSCULAR HGB CONC 33.8 g/dL CAL (32.0-36.0); MONO% 10.7 % (2-13); NEUT# 4.27 thou/uL (1.82-7.42); NEUT% 69.3 % (42-76); RED BLOOD COUNT 3.57 mill/uL (4.70-6.10)
[2023-10-30 23:02] LABS: ALKALINE PHOSPHATASE 74 u/l (38-126); AMYLASE 113 u/l (30-110); BUN 9 mg/dL (9-20); BUN/CREATININE RATIO 10 (12-20 (CALC)); CHLORIDE 110 mmol/l (95-108); CREATININE 0.9 mg/dL (0.7-1.3); GFR FOR AFR.AMER. > 60 ML/MIN (>=60 (CALC)); GFR OTHER RACES > 60 ML/MIN (>=60 (CALC)); LIPASE 105 u/l (23-300); POTASSIUM 3.7 mmol/l (3.5-5.1); SGOT/AST 64 u/l (17-59); SODIUM 139 mmol/l (137-146)
[2023-10-30 23:04] LABS: ALBUMIN 3.5 g/dL (3.2-5.0); ANION GAP 6 (6-22 (CALC)); BILIRUBIN, TOTAL 0.7 mg/dL (0.2-1.3); CARBON DIOXIDE 27 mmol/l (22-30); TOTAL PROTEIN 6.1 g/dL (6.3-8.2)
[2023-10-31] VITALS (21 sets, daily range): BP systolic 99–134; BP diastolic 61–83
[2023-10-31] MEDS ORDERED: IBUPROFEN600 MG PO (01:46)
[2023-10-31] MEDS ORDERED: TAMSULOSIN0.4 MG PO (01:46)
[2023-10-31] MEDS ORDERED: BACTRIM DS1 TAB PO (05:43)
--- NOTE | 2023-11-01 11:21 | NUR ---
Preliminary blood culture shows Gram positive Cocci in 1/[address] Braxton and explained to him about the pt results. Dr. Braxton gave me the order to follow up with the Pt and if the pt is feeling worse, tell him to come back to the ED for further management. I called the pt and he explained that he is peeing blood and having chills, denies fever. Also, the pt states that he didn't follow up with urologist and didn't picking supervisor his new prescriptions. I explained to the patient the importance of following up with urologist and picking-up the prescriptions. Also, let him know to comeback to the ED if his symptoms keep worsenings. Pt verbalized understanding and states that he is going to picking supervisor the rx today and contact the urologist for a follow up. We are going to follow up with pt again when we receive the final culture results.
--- NOTE | 2023-11-02 13:12 | NUR ---
Final blood culture shows Staph Hominis in 1/4 samples, Probable skin contaminant. I called the pt to follow up with him and the pt sates that he didn't miner pick the rx and do not call the urologist for follow up. Also, pt states that today he has a temperature of 99.2 F, and is expereince chills, headache and feeling weak. I encourage the pt to comeback to the ED because his symptoms are not showing any improvement. The pt sates that he do not want to comeback because he don't want to be transfer to other hospital. He verbalized that he is going to stay at his home as long as he can tolerated the pain. Again, I encourage the pt and he showed resistance to comeback. After talk to him and explain him the risk of not been treated the pt agreed to make an apointment with today. Reported all of this to .
== END 2023-10-31 06:58 | disposition home or self-care (01) | DRG 694 ==
LOC: ED 20:44
PROVIDERS: Family Medicine
DX: N20.0 Calculus of kidney (principal); K50.90 Crohn's disease, unspecified, without complications; I10 Essential (primary) hypertension; J45.909 Unspecified asthma, uncomplicated; K21.9 Gastro-esophageal reflux disease without esophagitis; Z87.442 Personal history of urinary calculi; Z72.0 Tobacco use
CPT/HCPCS: S0164